=== PATIENT | male | born 1945 | race Two or more races ===

== ENCOUNTER 2022-05-23 08:56 | Emergency (ER) | payer MEDICARE, OTHER ==
[~2022-05-23] VITALS: Ht 190.5 cm; Wt 134.8 kg
[2022-05-23 09:59] VITALS: BP 154/70
[2022-05-23] MEDS ORDERED: diphenhdrAMINE HCL 25 MG CAP PO ONE (10:30)
[2022-05-23] MEDS ORDERED: DexAMETHasone SOD PHOS 10MG/1ML VIAL INJ IM ONE (10:30)
[2022-05-23] MEDS ORDERED: CROM4SOL6 EACHEYE (12:43)
== END 2022-05-23 12:50 | disposition home or self-care (01) ==
LOC: ER 08:56
DX: T78.40XA Allergy, unspecified, initial encounter (principal); H10.13 Acute atopic conjunctivitis, bilateral; Z88.2 Allergy status to sulfonamides; Z88.0 Allergy status to penicillin; Z88.5 Allergy status to narcotic agent; Z88.8 Allergy status to other drugs, medicaments and biological substances; Y92.89 Other specified places as the place of occurrence of the external cause
CPT/HCPCS: 96372; 99283; J1100

== ENCOUNTER 2022-10-01 10:07 | Emergency (ER) | payer MEDICARE, OTHER ==
[~2022-10-01] VITALS: Ht 190.5 cm; Wt 133.5 kg
[~2022-10-01 10:07] MED LIST: CROM4SOL6 EACHEYE
[2022-10-01 10:10] VITALS: BP 122/89; PULSE 106; RESP 18; O2SAT 95
== END 2022-10-01 12:56 | disposition home or self-care (01) ==
LOC: ER 10:07
DX: Z48.00 Encounter for change or removal of nonsurgical wound dressing (principal); Z88.0 Allergy status to penicillin; Z88.6 Allergy status to analgesic agent; Z88.2 Allergy status to sulfonamides

== ENCOUNTER 2023-06-03 09:44 | Emergency (ER) | payer MEDICARE, OTHER ==
[~2023-06-03] VITALS: Ht 190.5 cm; Wt 139.2 kg
[2023-06-03 09:48] VITALS: TEMP 97.9
[2023-06-03 09:53] VITALS: BP 156/76; PULSE 90; RESP 20; O2SAT 95
[2023-06-03] MEDS: HYDROmorphone HCL 2 MG TAB PO ONE (11:09)
== END 2023-06-03 12:08 | disposition home or self-care (01) ==
LOC: ER 09:44
DX: M50.30 Other cervical disc degeneration, unspecified cervical region (principal); Z79.899 Other long term (current) drug therapy; Z88.0 Allergy status to penicillin; Z88.8 Allergy status to other drugs, medicaments and biological substances; Z91.09 Other allergy status, other than to drugs and biological substances
CPT/HCPCS: 72040

== ENCOUNTER 2024-02-19 17:20 | Emergency (ER) | payer MEDICARE, OTHER ==
[~2024-02-19] VITALS: Ht 190.5 cm; Wt 134.0 kg
[2024-02-19 18:39] VITALS: BP 128/64; PULSE 96; RESP 20; TEMP 97.9; O2SAT 98
--- NOTE | 2024-02-19 19:03 | ED.PDOC ---
HPI Comments 78-year-old male presents to ER with complaints of laceration to the left 3rd finger x2 hours. Patient reports that his left 3rd finger accidentally made impact with a sharp new knife in his kitchen while he was preparing food 2 hours prior to arrival to ER and sustained laceration to left 3rd finger at that time. Reports 8/10 pain localized to laceration of left 3rd finger without radiation. Denies use of medications for current symptoms and states he is unsure when his last tetanus shot was. Denies numbness/tingling or any further symptoms/complaints Chief Complaint: Laceration Time Seen by MD: 18:11 Primary Care Provider: CASTRO Reviewed Notes: Nurses Notes, Medications, Allergies Allergies: Coded Allergies: Lubiprostone (Verified Allergy, Unknown, 05/23/22) Morphine (Verified Allergy, Unknown, 05/23/22) Oxycodone (Verified Allergy, Unknown, 05/23/22) Penicillins (Verified Allergy, Unknown, 05/23/22) Prednisone (Verified Allergy, Unknown, 05/23/22) Red Dye #40 (Allura Red) (Verified Allergy, Unknown, 05/23/22) Sulfamethoxazole w/Trimethoprim (Verified Allergy, Unknown, 05/23/22) Tramadol (Verified Allergy, Unknown, 05/23/22) Yellow Dye (Verified Allergy, Unknown, 05/23/22) Home Meds Active Scripts Cephalexin Monohydrate (Cephalexin) 500 Mg Cap, 1 CAP PO BID for 7 Days, #14 CAP 0 Refills Prov:CHEL COLEMAN 02/19/24 Cromolyn Sodium (Cromolyn Sodium) 4 % Dania, 2 DROP EACHEYE QID, #10 ML Prov:TIMOTEO GONZALES PAC 05/23/22 Information Source: Patient Mode of Arrival: Ambulatory Complexity: Simple Laceration Length (cm): 2 Skin Type: Linear Past Medical History PAST MEDICAL HISTORY: PE Past Medical History (Other): Chronic back pain Surgical History (Other): bilateral hip surgery Lumbar fusion surgery Family History Family History: Unknown Social History Smoker: Non-Smoker Alcohol: Denies ETOH Use Drugs: Denies Drug Use Lives In: Home Constitutional: denies: chills, diaphoresis, fatigue, fever, malaise, sweats, weakness, others EENTM: denies: blurred vision, double vision, ear bleeding, ear discharge, ear drainage, ear pain, ear ringing, eye pain, eye redness, hearing loss, mouth pain, mouth swelling, nasal discharge, nose bleeding, nose congestion, nose pain, photophobia, tearing, throat pain, throat swelling, voice changes, others Respiratory: denies: cough, hemoptysis, orthopnea, SOB at rest, shortness of breath, SOB with excertion, stridor, wheezing, others Cardiovascular: denies: chest pain, dizzy spells, diaphoresis, Dyspnea on exertion, edema, irregular heart beat, left arm pain, lightheadedness, palpit ations, PND, syncope, others Gastrointestinal: denies: abdomen distended, abdominal pain, blood streaked b owels, constipated, diarrhea, dysphagia, difficulty swallowing, hematemesis, melena, nausea, poor appetite, poor fluid intake, rectal bleeding, rectal pain, vomiting, others Genitourinary: denies: burning, dysuria, flank pain, frequency, hematuria, incontinence, penile discharge, penile sore, pain, testicle pain, testicle swelling, urgency, others Neurological: denies: dizziness, fainting, headache, left sided numbness, left sided weakness, numbness, paresthesia, pre-existing deficit, right sided numbness, right sided weakness, seizure, speech problems, tingling, tremors, weakness, others Musculoskeletal: denies: back pain, gout, joint pain, joint swelling, muscle pain, muscle stiffness, neck pain, others Integumetry: reports: others (As stated in HPI) Allergic/Immunocompromised: denies: Difficulty Healing, Frequent Infections, Hives, Itching, others Hematologic/Lymphatic: denies: anemia, blood clots, easy bleeding, easy bruising, swollen glands, others Endocrine: denies: excessive hunger, excessive sweating, excessive thirst, excessive urination, flushing, intolerance to cold, intolerance to heat, unexplained weight gain, unexplained weight loss, others Psychiatric: denies: anxiety, bipolar disorder, depression, hopeless, panic disorder, schizophrenia, sleepless, suicidal, others Physical Exam General Appearance: No Apparent Distress, Obese HEENT: PERRL/EOMI Neck: Full Range of Motion, Non-Tender, Normal Respiratory: Chest Non-Tender, Lungs Clear, No Accessory Muscle Use, No Respiratory Distress, Normal Breath Sounds Cardiovascular: No Murmur, No Gallop, Regular Rate/Rhythm Breast Exam: Deferred Gastrointestinal: NOT DONE Genitalia: Deferred Pelvic: Deferred Rectal: Deferred Extremities: Normal capillary refill, Normal range of motion Neurologic: Alert, No Motor Deficits, Normal Affect, Normal Mood, No Sensory Deficits Cerebellar Function: Normal Reflexes: Normal Skin: Dry, Warm, Other (2 cm laceration noted to left 3rd distal phalanx. Slight TTP/swelling/erythema localized to wound edges. No nailbed injury/further skin changes noted. Patient able to fully move all fingers of left hand. Pulses intact) Peripheral Pulses: 2+ Radial (R), 2+ Radial (L), 2+ Brachial (R), 2+ Brachial (L) Lymphatic: No Adenopathy Was a procedure done? Was a procedure done?: Yes Sedation Sedation?: No Laceration Repair : Location Left 3rd finger Length 2 cm Anesthetic: Lidocaine (1%), Without epi Laceration Repair Prep: Saline, Betadine Laceration Repair Wound Comple: epidermis/dermis repair Laceration Repair: Number of sutures (3 placed without complication), Size (4-0), Nylon Informed consent obtained: Yes Risks, benefits, and alternati: Yes Differential diagnosis Generic Laceration: Fracture, Retained Foriegn Body, Neurovascular Injury X-Ray, Labs, Meds, VS Vital Signs Date Time Temp Pulse Resp B/P (MAP) Pulse Ox O2 Delivery O2 Flow Rate FiO2 02/19/24 18:39 96 20 98 Room Air 02/19/24 18:39 97.9 96 20 128/64 (85) 96 97.9 02/19/24 17:41 97.4 101 20 126/61 (82) 96 Current Medications Medications (Trade) Dose Ordered Sig/Hoda Route Start Time Stop Time Status Last Admin Diphtheria/ Tetanus/Acell Pertussis (Boostrix T-Dap) 0.5 ml ONCE ONCE IM 02/19/24 19:00 02/19/24 19:01 DC 02/19/24 19:08 T-dap .5 ml IM ordered Patient neurovascularly intact Wound care/cleaning discussed and advised Advised to follow up in two days for wound check Advised to follow up in 10-14 days for removal of sutures Advised to follow up with PCP in 1-2 days Patient verbalized understanding and agreeable with current plan of care Advised to return to ER immediately if symptoms worsen Time of 1ST Reevaluation: 18:44 Reevaluation 1ST: N/A Patient Education/Counseling: Diagnosis, Treatment, Prognosis, Need For Follow Up Family Education/Counseling: No Family Present Departure 1 Departure Time of Disposition: 19:02 Impression: Primary Impression: Finger laceration Qualified Codes: S61.213A - Laceration without foreign body of left middle finger without damage to nail, initial encounter Disposition: HOME / SELF CARE / HOMELESS Condition: Stable e-Prescriptions Cephalexin Monohydrate (Cephalexin) 500 Mg Cap 1 CAP PO BID for 7 Days, #14 CAP 0 Refills Prov: CHEL COLEMAN 02/19/24 Discharged With: Self Critical Care Note Critical Care Time?: No Stability Stability form required: No Heart Score Heart Score: Heart Score Response (Comments) Value History N/A 0 EKG N/A 0 Age N/A 0 Risk Factors N/A 0 Troponin N/A 0 Total 0 CHEL COLEMAN Feb 19, 2024 19:03
[2024-02-19] MEDS: TETANUS-DIPTH-ACEL PERTUSSIS 0.5ML SYR Tdap IM ONE (19:08)
[2024-02-19] MEDS ORDERED: CEPH500C PO (19:16)
== END 2024-02-19 19:22 | disposition home or self-care (01) ==
LOC: ER 17:20
DX: S61.213A Laceration without foreign body of left middle finger without damage to nail, initial encounter (principal); G89.29 Other chronic pain; Z88.0 Allergy status to penicillin; Z88.1 Allergy status to other antibiotic agents; Z88.2 Allergy status to sulfonamides; Z88.5 Allergy status to narcotic agent; Z88.8 Allergy status to other drugs, medicaments and biological substances; W26.0XXA Contact with knife, initial encounter; Y93.89 Activity, other specified; Y92.89 Other specified places as the place of occurrence of the external cause; Y99.8 Other external cause status
CPT/HCPCS: 12001; 90471; 90715

== ENCOUNTER 2024-10-06 08:13 | Emergency (ER) | payer MEDICARE, OTHER ==
[~2024-10-06] VITALS: Ht 190.5 cm; Wt 140.4 kg
[~2024-10-06 08:13] MED LIST changes: +CEPH500C PO
[2024-10-06 08:20] VITALS: TEMP 98.3
[2024-10-06 09:27] VITALS: BP 123/69; PULSE 80; RESP 20; O2SAT 93
--- NOTE | 2024-10-06 09:38 | ED.PDOC ---
Musculoskeletal HPI Comments 79 y/o M, presents to the ED for CC of lower extremity swelling. Patient states, he has been experiencing bilateral leg swelling x1year, which has now been worsening in the last couple of days. Patient reports, that he was seen at Urgent Care for symptoms and had an US done to rule out DVT's, results came back unremarkable. Patient denies trauma, injury, or recent fall. No other symptoms or modifying factors present at this time. Chief Complaint: Lower Extremity Time Seen by MD: 09:15 Primary Care Provider: TYLOR Reviewed Notes: Nurses Notes, Medications, Allergies Allergies: Coded Allergies: Lubiprostone (Verified Allergy, Unknown, 05/23/22) Morphine (Verified Allergy, Unknown, 05/23/22) Oxycodone (Verified Allergy, Unknown, 05/23/22) Penicillins (Verified Allergy, Unknown, 05/23/22) Prednisone (Verified Allergy, Unknown, 05/23/22) Red Dye #40 (Allura Red) (Verified Allergy, Unknown, 05/23/22) Sulfamethoxazole w/Trimethoprim (Verified Allergy, Unknown, 05/23/22) Tramadol (Verified Allergy, Unknown, 05/23/22) Yellow Dye (Verified Allergy, Unknown, 05/23/22) Home Meds Active Scripts Cephalexin Monohydrate (Cephalexin) 500 Mg Cap, 1 CAP PO BID for 7 Days, #14 CAP 0 Refills Prov:CHEL COLEMAN 02/19/24 Cromolyn Sodium (Cromolyn Sodium) 4 % Dania, 2 DROP EACHEYE QID, #10 ML Prov:TIMOTEO GONZALES PAC 05/23/22 Information Source: Patient Mode of Arrival: Ambulatory Location: Bilateral Extremity Location: Leg Timing: Months Prehospital treatment: None Severity: Moderate Able to Move Extremity: Yes Bear Weight: Fully Pain: Moderate Mechanism: Spontaneous Circumstances: Spontaneous Onset of Symptoms: Spontaneous Symptoms: Swelling DVT Risk Factors: NONE Last Tetanus: Unknown Associated signs and symptoms: Swelling Past Medical History PAST MEDICAL HISTORY: PE Surgical History: Denies all surgeries Family History Family History: Unknown Social History Smoker: Non-Smoker Alcohol: Denies ETOH Use Drugs: Denies Drug Use Lives In: Home Constitutional: denies: chills, diaphoresis, fatigue, fever, malaise, sweats, weakness, others EENTM: denies: blurred vision, double vision, ear bleeding, ear discharge, ear drainage, ear pain, ear ringing, eye pain, eye redness, hearing loss, mouth pain, mouth swelling, nasal discharge, nose bleeding, nose congestion, nose pain, photophobia, tearing, throat pain, throat swelling, voice changes, others Respiratory: denies: cough, hemoptysis, orthopnea, SOB at rest, shortness of breath, SOB with excertion, stridor, wheezing, others Cardiovascular: denies: chest pain, dizzy spells, diaphoresis, Dyspnea on exe rtion, edema, irregular heart beat, left arm pain, lightheadedness, palpitations, PND, syncope, others Gastrointestinal: denies: abdomen distended, abdominal pain, blood streaked bowels, constipated, diarrhea, dysphagia, difficulty swallowing, hematemesis, melena, nausea, poor appetite, poor fluid intake, rectal bleeding, rectal pain, vomiting, others Genitourinary: denies: burning, dysuria, flank pain, frequency, hematuria, incontinence, penile discharge, penile sore, pain, testicle pain, testicle swelling, urgency, others Neurological: denies: dizziness, fainting, headache, left sided numbness, left sided weakness, numbness, paresthesia, pre-existing deficit, right sided numbness, right sided weakness, seizure, speech problems, tingling, tremors, weakness, others Musculoskeletal: reports: others (bilateral leg swelling); denies: back pain, gout, joint pain, joint swelling, muscle pain, muscle stiffness, neck pain Integumetry: denies: bruises, change in color, change in hair/nails, dryness, laceration, lesions, lumps, rash, wounds, others Allergic/Immunocompromised: denies: Difficulty Healing, Frequent Infections, Hives, Itching, others Hematologic/Lymphatic: denies: anemia, blood clots, easy bleeding, easy bruis ing, swollen glands, others Endocrine: denies: excessive hunger, excessive sweating, excessive thirst, exc essive urination, flushing, intolerance to cold, intolerance to heat, unexplained weight gain, unexplained weight loss, others Psychiatric: denies: anxiety, bipolar disorder, depression, hopeless, panic disorder, schizophrenia, sleepless, suicidal, others All Other Systems: Reviewed and Negative Physical Exam General Appearance: Moderate Distress HEENT: Normal ENT Inspection, Pharynx Normal, TMs Normal Neck: Full Range of Motion, Non-Tender, Normal, Normal Inspection Respiratory: Chest Non-Tender, Lungs Clear, No Accessory Muscle Use, No Respiratory Distress, Normal Breath Sounds Cardiovascular: No Edema, No JVD, No Murmur, No Gallop, Normal Peripheral Pulses, Regular Rate/Rhythm Breast Exam: Deferred Gastrointestinal: No Organomegaly, Non Tender, No Pulsatile Mass, Normal Bowel Sounds, Soft Genitalia: Deferred Pelvic: Deferred Rectal: Deferred Extremities: Swelling (Bilateral lower extremity) Musculoskeletal : Apperance: Normal Neurologic: Alert, multimedia specialist II-XII nml as Tested, No Motor Deficits, Normal Affect, Normal Mood, No Sensory Deficits Cerebellar Function: Normal Reflexes: Normal Skin: Dry, Normal Color, Warm Peripheral Pulses: 3+ Radial (R), 3+ Radial (L) Lymphatic: No Adenopathy Was a procedure done? Was a procedure done?: No Differential Diagnosis EXT Differential Diagnosis: Cellulitis, CHF, Deep Vein Thrombosis X-Ray, Labs, Meds, VS Vital Signs Date Time Temp Pulse Resp B/P (MAP) Pulse Ox O2 Delivery O2 Flow Rate FiO2 10/06/24 09:27 80 20 93 Room Air 10/06/24 09:27 80 20 123/69 (87) 93 10/06/24 08:21 93 10/06/24 08:20 98.3 95 20 141/66 (91) 95 98.3 [place] [id number] Ph: [phone] DIAGNOSTIC IMAGING Diagnostic Imaging Report : [id number] Signed PATIENT: ELLEN CLIFTON ACCT: [id number] UNIT: [id number] : 1945 LOC: ER ROOM / BED: / AGE / SEX: 79 / M ADM STATUS: REG ER SERVICE 5 ORDERING PHYSICIAN: DICKSON LOUIS MD PROCEDURE(s): BLDVT - BiLat Lower DVT REASON: dvt ORDER NUMBER(s): [id number], ACCESSION NUMBER(s): [id number] US BiLat Lower DVT HISTORY: dvt COMPARISON: None TECHNIQUE: Duplex doppler evaluation of the deep venous system of the lower extremity from the common femoral veins, superficial femoral vein, great saphenous vein, deep femoral vein, popliteal vein, and calf veins, including color doppler and spectral/pulsed waveform analysis, was performed. FINDINGS: Right: - Common femoral vein: Compressible - Deep femoral vein: Compressible - Femoral vein: Compressible - Popliteal vein: Compressible - Posterior tibial vein: Waveforms present - Other: Nothing Left: - Common femoral vein: Compressible - Deep femoral vein: Compressible - Femoral vein: Compressible - Popliteal vein: Compressible - Posterior tibial vein: Waveforms present - Other: Nothing IMPRESSION: No right or left lower extremity deep venous thrombosis. ATED BY: LYLE COY MD DICTATED DATE/TIME: 10/06/24 1008 SIGNED BY: LYLE COY MD SIGNED DATE/TIME: 10/06/24 1008 CC: Patient alert. Complaining of extremity swelling. Vitals stable. Stockings in place. DVT study reviewed his within normal limits. No shortness a breath. No chest pain. Explained to the patient he will need to be moving frequently to avoid any stasis.. Was told to follow up with his primary care physician. Was told to come back if there is any problem. Time of 1ST Reevaluation: 09:45 Reevaluation 1ST: Improved Patient Education/Counseling: Diagnosis, Treatment Family Education/Counseling: No Family Present Departure 1 Departure Time of Disposition: 10:59 Impression: Primary Impression: Lymphedema Disposition: 01 HOME / SELF CARE / HOMELESS Condition: Good Discharged With: Self Critical Care Note Critical Care Time?: No Stability Stability form required: No Heart Score Heart Score: Heart Score Response (Comments) Value History N/A 0 EKG N/A 0 Age N/A 0 Risk Factors N/A 0 Troponin N/A 0 Total 0 I personally scribed for DICKSON LOUIS MD ([email or web address]) on 10/06/24 at 09:38. Electronically submitted by Chely Adams ([email or web address]). I personally scribed for DICKSON LOUIS MD ([email or web address]) on 10/06/24 at 09:50. Electronically submitted by Chely Adams ([email or web address]). I personally scribed for DICKSON LOUIS MD ([email or web address]) on 10/06/24 at 10:20. Electronically submitted by Chely Adams ([email or web address]). DIKCSON LOUIS MD Oct 06, 2024 09:38
--- NOTE | 2024-10-06 09:54 | ECG ---
[facility] Test Date: 2024-10-06 Test Time: 08:21:53 Pat Name: ELLEN CLIFTON Department: ER Room: Gender: M Route Cdl Driver: SARAH : 1945 Requested By: DICKSON LOUIS Order Number: [id number] Reading MD: Christiano Aguilar Measurements Intervals [place] Rate: 93 P: 43 SD: 178 QRS: 20 QRSD: 146 T: -17 QT: 387 QTc: 482 Interpretive Statements Sinus rhythm Right bundle branch block Electronically Signed On 10-07-2024 17:00:29 PDT by Christiano Aguilar Please click the below link to view image of tracing.
--- NOTE | 2024-10-06 10:10 | DVH ---
US BiLat Lower DVT HISTORY: dvt COMPARISON: None TECHNIQUE: Duplex doppler evaluation of the deep venous system of the lower extremity from the common femoral veins, superficial femoral vein, great saphenous vein, deep femoral vein, popliteal vein, an d calf veins, including color doppler and spectral/pulsed waveform analysis, was performed. FINDINGS: Right: - Common femoral vein: Compressible - Deep femoral vein: Compressible - Femoral vein: Compressible - Popliteal vein: Compressible - Posterior tibial vein: Waveforms present - Other: Nothing Left: - Common femoral vein: Compressible - Deep femoral vein: Compressible - Femoral vein: Compressible - Popliteal vein: Compressible - Posterior tibial vein: Waveforms present - Other: Nothing IMPRESSION: No right or left lower extremity deep venous thrombosis.
== END 2024-10-06 11:04 | disposition home or self-care (01) ==
LOC: ER 08:13
DX: I89.0 Lymphedema, not elsewhere classified (principal); Z79.899 Other long term (current) drug therapy; Z88.0 Allergy status to penicillin; Z88.2 Allergy status to sulfonamides; Z88.1 Allergy status to other antibiotic agents; Z88.5 Allergy status to narcotic agent
CPT/HCPCS: 93005; 93970